=== PATIENT | female | born 1950 | race Caucasian/White ===

== ENCOUNTER 2019-07-08 09:56 | Outpatient (CLI) | payer MEDICARE ==
--- NOTE | 2019-07-08 14:24 | NM ---
THREE-PHASE BONE SCAN: INDICATION: Concern for mechanical loosening of the right total knee prosthesis. RADIOPHARMACEUTICAL: 32 mCi of technetium 99 M MDP IV. FINDINGS: On the flow images there is increased vascular flow surrounding the right total knee prosthesis. Ther e is increased blood pool activity surrounding the right total knee prosthesis. There is surrounding marrow activity involving the right total knee prosthesis on the delayed phase images. Th ere is mild urinary contamination seen within the inguinal region. There is scattered degenerative change of the cervical spine, thoracic spine, lumbar spine, shoulders and feet. IMPRESSION: 1. Positive 3-phase bone scan surrounding the right total knee prosthesis. Findings can be seen with mechanical loosening and/or infection. If there is concern for infection a follow-up tagged white blood cell scan with a technetium labeled sulfur colloid evaluation may be helpful. 2. Scattered degenerative change involving the spine, shoulders and feet. Transcribed Date/Time: 07/08/2019 2:33 PM
== END 2019-07-08 09:57 | disposition home or self-care (01) ==
LOC: NM 09:56
PROVIDERS: ATTEND Orthopaedic Surgery
DX: T84.032A Mechanical loosening of internal right knee prosthetic joint, initial encounter (principal); M15.0 Primary generalized (osteo)arthritis
CPT/HCPCS: 78315; A9503

== ENCOUNTER 2019-11-11 18:45 | Observation (INO) | payer MEDICARE ==
[2019-11-11 21:19] LABS: Troponin I Less than 0.010 ng/mL (< 0.028)
[2019-11-11] MEDS ORDERED: Nitroglycerin 0.4 MG TAB (25 Tab Bottle) PO PRN (21:39)
[2019-11-11] MEDS ORDERED: Acetaminophen 650 MG Suppository PR PRN (21:42)
[2019-11-11] MEDS ORDERED: Acetaminophen 325 MG TAB PO PRN (21:42)
[2019-11-11] MEDS ORDERED: Dextrose 50% Abboject 50 ML SYRINGE SLOW IVP PRN (21:46)
[2019-11-11] MEDS ORDERED: Dextrose 5% in Water 1,000 ML IV PRN (21:46)
[2019-11-11] MEDS ORDERED: HumaLOG 300 UNITS/3 ML VIAL SC PRN ×2 (21:46)
[2019-11-11 22:13] VITALS: BMI 33.3
[2019-11-11] MEDS ORDERED: Lidocaine 2% Viscous Solution 10 ML, Aluminum & Magnesium Hydroxide 30 ML SSW SCH (22:30)
--- NOTE | 2019-11-11 23:26 | HP ---
TIME OF ASSESSMENT: 2000 hours. CHIEF COMPLAINT: Left upper extremity pain and chest discomfort. HISTORY OF PRESENT ILLNESS: Ms. Colon is a 69-year-old woman, with a known history of coronary artery disease status post CABG x4 in 2010, who required stenting of one of the grafts in 2011, who presents with complaints of left upper extremity pain that started while she was at work at approximately 3 p.m. The patient states she was sitting down and suddenly felt a sharp pain in her left forearm. She continued to have intermittent pains in her entire left upper extremity, described as sharp. She states that she then began to feel generally unwell and eventually began to experience discomfort in the lower sternum, which she finds difficult to describe. Her pain was eased with nitroglycerin. At present , she is asymptomatic, but very anxious given her history of heart disease. She has had a recent stress test done by Dr. Pierce and states that it was normal. She does not recall, if she has had an echo done, but believes it may have been less than a year ago. Prior to transferring her care to Dr. Pierce, she was previously seen by Dr. Soriano and has also been seen by Dr. Duran in the past. The patient states that in recent days, she has felt well in herself. On occasion, she experiences some breathlessness with walking long distances. Otherwise, she denies any shortness of breath. Denies having any recent fevers, chills, or sweats. No cough or hemoptysis. She recalls feeling flushed when the pain began, but denies any associated diaphoresis. Again, her pain has fully settled. EMERGENCY DEPARTMENT COURSE: In the emergency department, the patient was noted to be hypertensive with a blood pressure of 194/93. She had an EKG done, which showed normal sinus rhythm with a heart rate of 62. No ST changes or T-wave abnormalities present. She had laboratory studies done, which demonstrated a negative troponin. Full blood count was unremarkable. BUN 15, creatinine 0.83, GFR 68. LFTs negative. Chest x-ray done demonstrated no acute process. She was initially seen at [facility] and there she received 1 inch of Nitro-Bid and 324 mg of aspirin. PAST MEDICAL HISTORY: 1. Coronary artery disease. 2. Diabetes mellitus. 3. Hypertension. 4. Hyperlipidemia. 5. Anxiety. 6. Coronary artery disease. PAST SURGICAL HISTORY: 1. History of GI bleed. 2. CABG x4. 3. Cholecystectomy. 4. Hernia repair. 5. Hysterectomy. 6. Coronary artery stents. SOCIAL HISTORY: The patient denies any tobacco use, alcohol consumption, or illicit drug use. ALLERGIES: PENICILLIN. CURRENT MEDICATIONS: 1. Aspirin. 2. Atorvastatin. 3. Carvedilol. 4. Furosemide. 5. Lisinopril. 6. Meloxicam. 7. Metformin. 8. Multivitamin. 9. Pantoprazole. 10. Sertraline. PHYSICAL EXAMINATION: GENERAL: The patient appears somewhat anxious, but is in no acute distress. She is resting comfortably on the stretcher. VITAL SIGNS: Temperature 98.4, pulse 59, respirations 17, O2 saturations 99% on room air, blood pressure 167/87. HEENT: Normocephalic and atraumatic. Pupils are equal, round, and reactive to light. Sclerae icterus. Oropharynx is clear. NECK: Supple. LUNGS: Clear to auscultation bilaterally without any wheezes, rales, or rhonchi. CARDIAC: Regular rate and rhythm. No reproducible chest wall tenderness on palpation. ABDOMEN: Soft, nontender, nondistended. Normoactive bowel sounds present. No guarding or rigidity. No renal angle tenderness. EXTREMITIES: No lower leg swelling or edema. NEUROLOGIC: Alert and oriented x3. SKIN: Warm and dry. INVESTIGATIONS: As mentioned above in HPI. IMPRESSION AND PLAN: Ms. Colon is a 69-year-old woman, who is being admitted for management of the following. 1. Acute coronary syndrome, rule out. The patient with a known history of coronary artery disease status post coronary artery bypass grafting and coronary artery stents with HEART score of 5 and a history of hypertension as well as diabetes mellitus. The patient experiences left upper extremity pain that was intermittent and severe and then followed by lower chest discomfort. Her symptoms have resolved following treatment given in the emergency department and she has remained pain free since then but is very anxious given her history. She reports having a normal stress test done recently by Dr. Pierce. We will therefore consult Dr. Pierce as per patient's request. Unclear, if echo has been done in less than a year. If not , we will need to be repeated. We will continue to trend troponins. We will keep patient n.p.o. after midnight. 2. Hypertension. Monitor blood pressure and resume home medications once verified. 3. Diabetes mellitus. Hold metformin. Insulin sliding scale initiated. Monitor blood glucose. 4. Gastrointestinal prophylaxis. We will resume pantoprazole, which she takes at home. 5. Deep venous thrombosis prophylaxis. Walking program consulted. The patient is ambulatory. No pharmaco prophylaxis recommended. 6. Code status full. Surrogate decision maker is her daughter, Arlene Colon. Case discussed with attending who agrees with plan of care as described above. Job ID: [id number]
[2019-11-11] MEDS: Carvedilol 3.125 MG TAB PO SCH (23:36)
[2019-11-11] MEDS: Atorvastatin Calcium 10 MG TAB PO SCH (23:36)
[2019-11-11] MEDS: Lisinopril 10 MG TAB PO SCH (23:36)
[2019-11-11 23:58] LABS: Troponin I Less than 0.010 ng/mL (< 0.028)
[2019-11-12 04:53] LABS: #Basophils 0.1 thou/uL (0.0-0.2); #Eosinphils 0.5 thou/uL (0.0-0.7); #Lymphocytes 2.8 thou/uL (1.20-3.40); #Monocytes 1.1 thou/uL (0.11-0.59); #Neutrophils 5.7 thou/uL (1.40-6.50); %Basophils 0.6 % (0.0-1.0); %Eosinophils 4.5 % (0.0-10.0); %Lymphocytes 27.6 % (21.0-51.0); %Monocytes 10.5 % (0.0-10.0); %Neutrophils 56.8 % (42.0-75.0); Hemoglobin 12.1 g/dL (12.0-16.0); Mean Corpuscular HGB CONC 32.5 g/dL (32.0-36.0); Mean Corpuscular Hemoglobin 30.6 pg (27.0-31.0); Mean Corpuscular Volume 94.1 fL (78.0-98.0); Mean Platelet Volume 7.2 fL (7.4-10.4); Platelet Count 305 thou/uL (130-400); RBC Distribution Width 12.6 % (11.5-14.5); Red Blood Cell (RBC) Count 3.96 mill/uL (4.20-5.40); White Blood Cell (WBC) Count 10.1 thou/uL (4.8-10.8)
[2019-11-12 05:02] VITALS: TEMP 97.4
[2019-11-12 05:15] LABS: Anion Gap 11 mmol/L (10-20); BUN (Urea Nitrogen) 16 mg/dL (9.8-20.1); Calc. Creatinine Clearance 78 mL/min (70-130); Calcium 9.4 mg/dL (7.8-10.44); Carbon Dioxide 30 mmol/L (23-31); Cardiac Risk 3.3 (Less than 4.5); Chloride 103 mmol/L (98-107); Cholesterol 170 mg/dl (< 200 Desired); Estimated GFR-MDRD 62; Glucose 120 mg/dL (80-115); HDL Cholesterol 52 mg/dL (>60 Neg Risk); LDL Cholesterol, Calculated 94 mg/dL; Potassium 3.7 mmol/L (3.5-5.1); Sodium 140 mmol/L (136-145); Triglycerides 120 mg/dL (Less than 150)
[2019-11-12] MEDS: Carvedilol 3.125 MG TAB PO SCH (07:58)
[2019-11-12] MEDS: Lisinopril 10 MG TAB PO SCH (07:59)
[2019-11-12] MEDS: Atorvastatin Calcium 10 MG TAB PO SCH (07:59)
[2019-11-12 08:02] VITALS: BP 111/61
[2019-11-12] MEDS ORDERED: Aspirin 81 mg Enteric Coated Tablet PO SCH ×2 (09:00)
[2019-11-12] MEDS ORDERED: Meloxicam 7.5 MG TAB PO SCH (09:00)
[2019-11-12] MEDS ORDERED: Famotidine 20 MG TAB PO SCH (09:00)
[2019-11-12] MEDS ORDERED: Furosemide 20 MG TAB PO SCH (09:00)
--- NOTE | 2019-11-12 11:07 | CON ---
DATE OF CONSULTATION: PRIMARY CARE DOCTOR: Dr. Garcia. PRIMARY SAILING OFFICER: Dr. Mara Pierce. REASON FOR CARDIOLOGY CONSULT: Chest pain, history of CABG x4, and stent placement, previous normal stress test. HISTORY OF PRESENT ILLNESS: Ms. Colon is a 69-year-old female with significant history of coronary artery disease with status post CABG x4 in 2010, and stent placement x2 in 2012, hypertension, hyperlipidemia, and severe depression, and severe GERD. The patient was seen by Dr. Pierce in September 2019 for surgical clearance for right knee total replacement. The patient's stress test was normal, no ischemia with EF 59% on November 01, 2019. The patient had echocardiogram done in 2010 with EF 50% to 55%, mild to moderate mitral valve regurgitation, and mild tricuspid regurgitation. She has chronic shortness of breath. She has been depressed, anxiety, but however, she was doing relatively stable till yesterday after she cleaned up and mopped a big room, and she started having sharp pain in the left upper arm, which radiated to bilateral lower part of her chest with heaviness to the site. She also started having warmness to herself and getting feeling weak. Due to those reasons, the patient decided to present to the emergency department for further evaluation and treatment. She describes her symptom is similar as previous symptom when the patient underwent CABG and stent placement. At this moment, the patient is still feeling weak, chronic shortness of breath. Otherwise, the patient denied chest pain, heaviness, tightness, dizziness, lightheadedness, or any other cardiac complaints. PAST MEDICAL HISTORY: The patient's medical history, coronary artery disease with status post CABG and stent placement, hypertension, hyperlipidemia, varicose vein, and lower GI bleed in 2013, and severe depression, and severe GERD. PAST SURGICAL HISTORY: CABG x4 with WILLSON to LAD, left radial to ramus, reverse graft to the OM, and reverse graft to the PLB in 2010, cholecystectomy, total hysterectomy and stent placement x2 or [address] Soriano in 2011 and 2012 according to the patient, and right varicose vein ablation in March 2013. FAMILY HISTORY: The patient's sister has disease due to complication of hypertension and CVA. The patient's brother has underwent CABG. The patient's mother had a liver problem. The patient's son had stent placement x2 at the age of 52. SOCIAL HISTORY: She is . She has 3 children. 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 She smoked as like experimental around the 20s, but she has been around smoker since then. She drinks one lubna once in a while. She denies illicit drug abuse. She does not exercise. She drinks at least 2 to 3 cokes a day. ALLERGIES: SHE IS ALLERGIC TO PENICILLIN. HOME MEDICATIONS: 1. Zoloft 150 mg once a day. 2. Atorvastatin 10 mg twice a day. 3. Multivitamin one tablet once a day. 4. Protonix 40 mg once a day. 5. Metformin 500 mg twice a day. 6. Meloxicam 7.5 mg once a day. 7. Aspirin 81 mg once a day. 8. Lisinopril 10 mg twice a day. 9. Lasix 20 mg every other day. 10. Carvedilol 3.125 mg twice a day. REVIEW OF SYSTEMS: A 12-point review of systems is negative unless otherwise mentioned in HPI. The patient has continued having chronic shortness of breath, which has not changed within the last 3 months, even this time. The patient has had severe GERD in September, but prior to this admission, her GERD is otherwise stable. She continued to have intermittent diarrhea, which was induced by one of her medication. Since CABG surgery in 2010, the patient started feeling depressed; however, since February 2019, when she moved to [place], her depression got worse. Her PCP has increased the Zoloft dosage from 100 mg to 150 mg recently. However, she does not feel any changes. PHYSICAL EXAMINATION: VITAL SIGN: Blood pressure 111/61, temperature 97.4, pulse is 62, sinus rhythm, respiratory rate 16, O2 saturation 95% on room air. GENERAL: The patient is alert and oriented x4, not in acute distress. HEENT: Normocephalic, atraumatic. EYES: Extraocular muscle movement intact. ENT AND MOUTH: Oral and nasal mucosa moist without lesion. NECK: Supple. Normal range of motion. No JVD. No bruit or thrill noted. RESPIRATORY: Clear to auscultate bilaterally. No wheezing, rales noted. CARDIOVASCULAR: Regular rate and rhythm. Normal S1, S2. There is no S3 or S4. No significant murmur, hives, or thrill noted. 2+ pulses in bilateral upper and lower extremities. No edema in the lower extremities. ABDOMEN: Soft. No mass to palpitate, but the patient complained of mild tenderness to touch to the mid upper abdomen with palpitation. Bowel sounds are present. SKIN: Warm and dry. No lesion, rash, or erythema noted. MUSCULOSKELETAL: The patient able to move all extremities. The patient denied claudication. However, the patient did complain of the pain to the right knee. NEUROLOGIC: The patient is alert and oriented x4. No focal. NEUROPSYCHIATRIC: The patient complained of feeling depressed, otherwise stable per patient. LABORATORY DATA: WBC 10.1, hemoglobin 12.1, hematocrit 37.3, platelets 305. Sodium 140, potassium 3.7, BUN 16, creatinine 0.90, glucose 120, calcium 9.4, mag 2.1. Total cholesterol 170, triglyceride 120, HDL 52, LDL 94. TSH 5.3844, free-T4 0.88. Troponin level is negative x3. IMAGING DATA: Chest x-ray, no acute process. The patient's 12-lead EKG showed no ST-segment change or T-wave inversion. ASSESSMENT AND PLAN: 1. Chest pain or chest tightness. The patient's 12-lead EKG and the patient's troponin has been within normal range. The patient's stress test in October 2019 shows no ischemia with EF 59%. I would like to discuss with Dr. Pierce for the patient's further cardiac treatment. 2. Coronary artery disease with a history of coronary artery bypass grafting x4 in 2010, and stent x2 in 2012. She is on carvedilol 3.125 mg twice a day, aspirin 81 mg once a day, atorvastatin 10 mg. She is on lisinopril 10 mg twice a day. 3. Hypertension. The patient's vital signs are stable at this moment. 4. Hyperlipidemia. According to the patient's home medication records, she has been on atorvastatin 10 mg twice a day, which is unusual. I would like to change it to 20 mg once a day at night. Job ID: [id number]
[2019-11-12] MEDS ORDERED: Multivit, Therapeutic 1 TAB PO SCH (12:00)
--- NOTE | 2019-11-12 12:58 | CON ---
DATE OF CONSULTATION: 11/12/2019 ADDENDUM: INDICATION FOR CONSULTATION: This is a 69-year-old female with history of coronary artery disease status post bypass surgery. She was admitted with chest discomfort, which she said mainly started as a sharp stabbing pain down her left arm at times and then she had pain in her back. She said she has some upper chest pain. The whole episode lasted about 30 minutes, but on the way to the emergency room, the pain was resolved. She did have some mild shortness of breath associated with this, but she has recently been seen in the office, had a stress test, which was unremarkable within the last month. She has also had her enzymes x3, which are negative. EKG is unremarkable. At this time, I do not think her chest pain appears to be cardiac in nature and she should be a reasonable candidate to discharge to home. We can see her back in the office in the next 2-4 weeks. Job ID: [id number]
--- NOTE | 2019-11-12 17:06 | DIS ---
DATE OF ADMISSION: 11/11/2019 DATE OF DISCHARGE: 11/12/2019 CONSULTATIONS: Cardiology with Dr. Mara Pierce. PROCEDURES: None. BRIEF HISTORY OF PRESENT ILLNESS: This is a 69-year-old female with past medical history of CABG, who presented to the emergency room with chest pain. The patient states that she was sitting down and she noted severe pain in her left arm as well as some left upper chest pain. She states about an hour prior she had eaten dinner, but she does take Protonix on a daily basis at home. She stated that the pain lasted until she came to the emergency room and was given aspirin and nitroglycerin. She also reported some pain while she was cleaning and mopping a big room. She had no further episodes of chest pain after coming to the emergency room. She denied fevers, chills, or sweats. Her EKG showed normal sinus rhythm with sinus bradycardia: She was admitted for further workup. HOSPITAL COURSE: Chest pain: The patient underwent 3 sets of troponins, which were negative. Cardiology was consulted and given that the patient had a recent stress test, which was normal. They did not recommend any further workup. She was started on atorvastatin. Her TSH is elevated, but her free T4 was normal. The patient had a chest x-ray, which was normal. Per Dr. Pierce, she was resumed on all of her home medications. She was advised to consider getting PFTs done as an outpatient with her PCP if she has not previously. If she were to develop new or worsening symptoms, she can come back to the emergency room. DISCHARGE PHYSICAL EXAMINATION: VITAL SIGNS: Temperature 97.4, heart rate 62, blood pressure 111/61, respiratory rate 16, and O2 saturation 95% on room air. GENERAL: The patient is alert, awake, and oriented x3. CARDIOVASCULAR: Regular rate and rhythm with no murmurs, rubs, or gallops. LUNGS: Clear to auscultation bilaterally. ABDOMEN: Positive bowel sounds. Soft, nontender, and nondistended. EXTREMITIES: No edema. PERTINENT LABORATORY DATA: CBC on 11/11: Was unremarkable. BMP on 11/11: Was unremarkable. Troponin I: Less than 0.010 x3. Lipid panel: Triglyceride 120, cholesterol 170, LDL 94, HDL 52, TSH 5.38, free T4 of 0.88. IMAGING DATA: Chest x-ray: No acute disease. EKG: Normal sinus rhythm and sinus bradycardia. DISCHARGE CONDITION: Stable. ACTIVITY: As tolerated. DIET: Heart-healthy diet. DISCHARGE MEDICATIONS: New prescription: Atorvastatin 20 mg p.o. at bedtime. All other home medications are resumed. DISCHARGE INSTRUCTIONS: The patient to follow up with her PCP in a week. Consider getting PFTs done as an outpatient. Job ID: [id number] MTDD
[2019-11-12] MEDS ORDERED: Atorvastatin Calcium 20 MG TAB PO SCH (21:00)
--- NOTE | 2019-11-13 09:30 | EKG ---
Test Reason : Blood Pressure : / mmHG Vent. Rate : 062 BPM Atrial Rate : 062 BPM P-R Int : 182 ms QRS Dur : 080 ms QT Int : 424 ms P-R-T Axes : 103 023 058 degrees QTc Int : 430 ms Normal sinus rhythm Normal ECG Confirmed by MICHAEL CARROLL, KAYLENE Jerez ([id number]), art editor DIA ARTEAGA ([id number]) on 11/13/2019 9:29:44 AM Referred By: Confirmed By:KAYLENE RODRIGUEZ MD
== END 2019-11-12 11:23 | disposition home or self-care (01) ==
LOC: ERS 18:45 → 2SW 20:16
PROVIDERS: ADMIT Family Medicine; ATTEND Family Medicine
DX: R07.89 Other chest pain (principal); M79.602 Pain in left arm; I25.10 Atherosclerotic heart disease of native coronary artery without angina pectoris; I10 Essential (primary) hypertension; E11.9 Type 2 diabetes mellitus without complications; E78.5 Hyperlipidemia, unspecified; F41.9 Anxiety disorder, unspecified; Z79.82 Long term (current) use of aspirin; Z79.84 Long term (current) use of oral hypoglycemic drugs; Z79.899 Other long term (current) drug therapy; Z87.891 Personal history of nicotine dependence; Z88.0 Allergy status to penicillin; Z95.1 Presence of aortocoronary bypass graft; Z95.5 Presence of coronary angioplasty implant and graft
CPT/HCPCS: 36415; 36416; 80048; 80061; 83735; 84439; 84443; 84484; 85025; 93005; G0378

== ENCOUNTER 2020-02-27 15:59 | Emergency (ER) | payer MEDICARE ==
[~2020-02-27 15:59] MED LIST: Iopamidol-370 76% 500 ML 1 ML ONE
[2020-02-27 16:26] LABS: #Basophils 0.1 thou/uL (0.0-0.2); #Eosinphils 0.4 thou/uL (0.0-0.7); #Lymphocytes 2.9 thou/uL (1.20-3.40); #Monocytes 1.5 thou/uL (0.11-0.59); #Neutrophils 9.9 thou/uL (1.40-6.50); %Basophils 0.5 % (0.0-1.0); %Eosinophils 2.7 % (0.0-10.0); %Lymphocytes 19.8 % (21.0-51.0); %Monocytes 9.8 % (0.0-10.0); %Neutrophils 67.1 % (42.0-75.0); Hemoglobin 12.4 g/dL (12.0-16.0); Mean Corpuscular HGB CONC 32.3 g/dL (32.0-36.0); Mean Corpuscular Hemoglobin 30.5 pg (27.0-31.0); Mean Corpuscular Volume 94.3 fL (78.0-98.0); Mean Platelet Volume 7.2 fL (7.4-10.4); Platelet Count 402 thou/uL (130-400); RBC Distribution Width 12.3 % (11.5-14.5); Red Blood Cell (RBC) Count 4.07 mill/uL (4.20-5.40); White Blood Cell (WBC) Count 14.8 thou/uL (4.8-10.8)
[2020-02-27 16:48] LABS: ALT (SGPT) 11 U/L (8-55); AST (SGOT) 14 U/L (5-34); Albumin 4.4 g/dL (3.4-4.8); Alkaline Phosphatase 78 U/L (40-110); Anion Gap 13 mmol/L (10-20); BUN (Urea Nitrogen) 18 mg/dL (9.8-20.1); Bilirubin, Total 0.7 mg/dL (0.2-1.2); Calc. Creatinine Clearance 0 mL/min (70-130); Calcium 9.7 mg/dL (7.8-10.44); Carbon Dioxide 27 mmol/L (23-31); Chloride 101 mmol/L (98-107); Estimated GFR-MDRD 70; Globulin 3.9 g/dL (2.4-3.5); Glucose 106 mg/dL (80-115); Lipase 20 U/L (8-78); Potassium 4.3 mmol/L (3.5-5.1); Protein, Total 8.3 g/dL (6.0-8.3); Sodium 137 mmol/L (136-145)
[2020-02-27] MEDS ORDERED: Morphine 4 MG/ML VIAL ONE (17:20)
[2020-02-27] MEDS ORDERED: Ondansetron PF 4 MG/2 ML Vial ONE (17:20)
[2020-02-27 17:22] LABS: Bilirubin Negative (Negative); Clarity Turbid (Clear); Glucose, Urine (Dipstick) Normal (Negative); Ketone, Urine Negative (Negative); Leukocyte 250 Leu/uL (Negative); Mucous/LPF 3+ LPF (<2+); Nitrite Negative (Negative); Protein, Urine (Dipstick) 50 mg/dL (Neg-Trace); Specific Gravity, Urine 1.031 (1.002-1.036); Urobilinogen Normal mg/dL (Less than 2); pH, Urine 5.5 (5.0-9.0)
[2020-02-27 17:26] LABS: Blood, Urine 1+ (Negative)
[2020-02-27 17:29] LABS: Transitional Epithelial 0-3 HPF (None Seen); WBC/HPF 21-50 HPF (0-3)
[2020-02-27 17:30] LABS: Bacteria/HPF Rare-Few HPF (None Seen)
--- NOTE | 2020-02-27 18:28 | CT ---
CT ABDOMEN AND PELVIS WITH IV CONTRAST 02/27/2020 CLINICAL INFORMATION: Left lower quadrant abdominal pain for 3 days. COMPARISON: None. Technique: Multiple contiguous axial CT images are obtained through the abdomen and pelvis with IV contrast. Cor onal reformatted images are provided. FINDINGS: Lower Chest: Mild scarring versus atelectasis right lung base. Vessels: Vascular calcifications in the abdominal aorta and iliac arteries. Abdomen: Portal vein:Patent Gallbladder: Surgically absent. Liver: within normal limits. Spleen: Granulomata. Pancreas: within normal limits. Adrenals: within normal limits. Kidneys: Right kidney is rotated. A subcentimeter too small to characterize hypodense lesion is seen in the midportion left kidney which could represent a tiny focal area of scarring. Bowel: There is colonic diverticulosis with colonic wall thickening involving the proximal sigmoid co dustin. Pericolonic inflammatory changes are seen in this region, and findings are most compatible with diverticulitis. No free intraperitoneal gas is seen, and there is no evidence of a fluid collect ion to suggest abscess. Small hiatal hernia is present. Loops of small bowel are normal in caliber. Appendix: The appendix is visualized and normal in caliber. Peritoneum: No ascites or free air; no fluid collection. Mesentery and Retroperitoneum: No enlarged mesenteric or retroperitoneal lymph nodes. Abdominal Wall: Small fat-containing left inguinal hernia. Pelvis: Reproductive Organs: Evidence of hysterectomy. Pelvis within normal limits. Bladder: Decompressed but otherwise grossly within normal limits. Bones: Degenerative changes seen in the lower thoracic as well as involving the lumbar spine. Median sternotomy wires are partially imaged. IMPRESSION: Sigmoid diverticulitis. Follow-up evaluation is recommended to ensure resolution of bowel wall [email or web address] javier [email or web address].
[2020-02-27] MEDS ORDERED: metroNIDAZOLE 250 MG TAB ONE (19:30)
[2020-02-27] MEDS ORDERED: Ciprofloxacin 500 MG TAB ONE (19:30)
== END 2020-02-27 19:22 | disposition home or self-care (01) ==
LOC: ERS 15:59
DX: K57.32 Diverticulitis of large intestine without perforation or abscess without bleeding (principal); I25.10 Atherosclerotic heart disease of native coronary artery without angina pectoris; E11.9 Type 2 diabetes mellitus without complications; I10 Essential (primary) hypertension; F41.9 Anxiety disorder, unspecified; F32.9 Major depressive disorder, single episode, unspecified; Z79.84 Long term (current) use of oral hypoglycemic drugs
CPT/HCPCS: 36415; 74177; 80053; 81003; 81015; 83605; 83690; 85025; 96374; 96375; J2270; J2405; Q9967